=== PATIENT | female | born 1980 | race Caucasian/White ===

== ENCOUNTER 2017-05-28 02:26 | Inpatient (IN) | payer BC ==
[2017-05-28 02:27] VITALS: BMI 26.5
--- NOTE | 2017-05-28 02:38 | C.PDOC ---
History Of Present Illness Patient is a 36 y/o female who presents to the ED as a transfer from [facility] for hyperemesis. Patient is not tolerating PO and was given diclegis without resolution. Patient is and was medically cleared at [place]. Dr. Denton accepted and transferred patient. No other physical complaints at this time. Time Seen by Provider: 05/28/17 02:36 Chief Complaint (Nursing): GI Problem History Per: Patient History/Exam Limitations: no limitations Onset/Duration Of Symptoms: Hrs Current Symptoms Are (Timing): Still Present Context: Patient Recent travel outside of the [place]: No Past Medical History Reviewed: Historical Data, Nursing Documentation, Vital Signs Vital Signs: Last Vital Signs Temp 98.5 F 05/28/17 02:38 Pulse 65 05/28/17 02:38 Resp 16 05/28/17 02:38 BP 110/69 05/28/17 02:38 Pulse Ox 98 05/28/17 02:38 - Medical History PMH: No Chronic Diseases Surgical History: No Surg Hx - [facility] Procedures INJECT/INFUSE NEC (01/19/15) Family History: States: No Known Family Hx - Social History Hx Alcohol Use: No Hx Substance Use: No - Immunization History Hx Tetanus Toxoid Vaccination: No Hx Influenza Vaccination: No Hx Pneumococcal Vaccination: No Review Of Systems Gastrointestinal: Positive for: Vomiting (hyperemesis) Physical Exam - Physical Exam Appears: Non-toxic Skin: Warm, Dry Head: Normacephalic Oral Mucosa: Moist Chest: Symmetrical Cardiovascular: Rhythm Regular, No Murmur Respiratory: Normal Breath Sounds, No Rales, No Rhonchi, No Wheezing Gastrointestinal/Abdominal: Soft, No Tenderness Disposition Discussed With : Ceci Denton Comment: accepted the pt on her service and took over the care at 2:39AM Doctor Will See Patient In The: ED Counseled Patient/Family Regarding: Studies Performed, Diagnosis - Disposition Disposition: HOSPITALIZED Disposition Time: 02:38 Condition: FAIR - POA Present On Arrival: None - Clinical Impression Clinical Impression: Intractable vomiting, - Scribe Statement The provider has reviewed the documentation as recorded by the Scribe Alanna Sims All medical record entries made by the Scribe were at my direction and personally dictated by me. I have reviewed the chart and agree that the record accurately reflects my personal performance of the history, physical exam, medical decision making, and the department course for this patient. I have also personally directed, reviewed, and agree with the discharge instructions and disposition. Decision To Admit - Pt Status Changed To: Hospital Disposition Of: Inpatient - Admit Certification Admit to Inpatient:: After my assessment, the patient will require hospitalization for at least two midnights. This is because of the severity of symptoms shown, intensity of services needed, and/or the medical risk in this patient being treated as an outpatient. - InPatient: Physician Admission Certification: I certify that this patient requires 2 or more midnights of care for the following reason:: After my assessment, the patient will require hospitalization for at least two midnights. This is because of the severity of symptoms shown, intensity of services needed, and/or the medical risk in this patient being treated as an outpatient. - . Bed Request Type: Regular Admitting Physician: Ceci A Bertin Patient Diagnosis: Intractable vomiting,
[2017-05-28] MEDS ORDERED: Dextrose 5%/0.9% NS 1,000 ML IV ONE (06:04)
[2017-05-28] MEDS: Pyridoxine HCl 100 mg/ml Inj IV SCH ×2 (07:01→11:30)
--- NOTE | 2017-05-28 07:07 | CP.PCM.HP ---
History of Present Illness - History of Present Illness History of Present Illness: Patient received from [facility] at [facility] Patient received in bed, room 560B: resting; easily awakened. 34 y.o. , LMP 03/04/17, PHUC 12/09/17, EGA 12 w 1d, confirmed by hermanno at weeks, presented to [facility] at [place] 05/27/17 with worsening vomiting from 05/26/17 through 05/27/17 and vomiting blood - intermittently 05/26/17 and "all the time I vomited" 05/27/17 with passage of a clot. HPI: nausea and vomiting since 8 weeks gestation. Has been on alternating anti- emetics: reglan and diclegis by private Ob, [facility]. Intractable vomiting unresponsive to meds 1100 hours 05/27/17: took diclegis in the am 05/27/17 - no improvement; then took reglan - very little improvement. Then decided to come in for evaluation. In E.D. at [place], received zofran - has had no vomiting since. Patient is hungry. Per patient has actually gained weight: prepregnancy weight 134 lbs; 05/27/17 Ob visit, 140 lbs. 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 No h/o Pap. (+) h/o fibroid, 1999 PMH: denies PSH: 1) D&C x 2. 2) 2000, open myomectomy. 3) 08/2015, arthroscopic surgery - torn meniscus right knee. 4) 10/2015, removal of lump dorsum left wrist Meds: reglan, diclegis - as needed. NKDA Soc Hx: denies tobacco, illicit drug or EtOH use. x 3 years; together 5 years. Unemployed Fam Hx: Mother alive 58 y.o. HTN. Father age 60 - stomach cancer. Present on Admission - Present on Admission Any Indicators Present on Admission: No Review of Systems - Review of Systems All systems: reviewed and no additional remarkable complaints except Past Patient History - Infectious Disease Hx of Infectious Diseases: None - Past Medical History & Family History Past Medical History?: No - Past Social History Smoking Status: Never Smoked Chewing Tobacco Use: No Cigar Use: No Home Situation {Lives}: With Family - CARDIAC Hx Cardiac Disorders: No - PULMONARY Hx Respiratory Disorders: No - NEUROLOGICAL Hx Neurological Disorder: No - HEENT Hx HEENT Problems: No - RENAL Hx Chronic Kidney Disease: No - ENDOCRINE/METABOLIC Hx Endocrine Disorders: No - HEMATOLOGICAL/ONCOLOGICAL Hx Blood Disorders: No - INTEGUMENTARY Hx Dermatological Problems: No - MUSCULOSKELETAL/RHEUMATOLOGICAL Hx Musculoskeletal Disorders: No - GASTROINTESTINAL Hx Gastrointestinal Disorders: No - GENITOURINARY/GYNECOLOGICAL Hx Genitourinary Disorders: No Other/Comment: Myomectomy LMP:: 03/04/2017 : 3 Para: 0 Termination of : 2 - PSYCHIATRIC Hx Psychophysiologic Disorder: No Hx Substance Use: No - SURGICAL HISTORY Hx Surgeries: Yes Hx Orthopedic Surgery: Yes Other/Comment: rt. knee torn meniscus, myomectomy and left hand sx. - ANESTHESIA Hx Anesthesia: Yes Hx Anesthesia Reactions: No Meds Allergies/Adverse Reactions: Allergies Allergy/AdvReac Type Severity Reaction Status Date / Time No Known Allergies Allergy Verified 05/28/17 02:49 Physical Exam - Constitutional Appears: Well, No Acute Distress - Head Exam Head Exam: NORMAL INSPECTION, NORMOCEPHALIC - Eye Exam Eye Exam: Normal appearance - ENT Exam ENT Exam: Mucous Membranes Moist - Neck Exam Neck exam: Positive for: Full Rom - Respiratory Exam Respiratory Exam: NORMAL BREATHING PATTERN - Cardiovascular Exam Cardiovascular Exam: REGULAR RHYTHM - GI/Abdominal Exam GI & Abdominal Exam: Normal Bowel Sounds, Soft - Exam Bimanual exam: NORMAL BIMANUAL EXAM - Extremities Exam Extremities exam: Positive for: full ROM, normal inspection - Back Exam Back exam: NORMAL INSPECTION - Neurological Exam Neurological exam: Alert, Oriented x3 - Psychiatric Exam Psychiatric exam: Normal Affect, Normal Mood - Skin Skin Exam: Dry, Intact, Normal Color, Warm Results - Vital Signs Recent Vital Signs: Last Vital Signs Temp 98.3 F 05/28/17 03:30 Pulse 67 05/28/17 03:30 Resp 16 05/28/17 03:30 BP 109/68 05/28/17 03:30 Pulse Ox 99 05/28/17 03:30 Assessment & Plan - Assessment and Plan (Free Text) Assessment: Labs and ultrasound report reviewed by me noted for ketones in urine >80; Ob sono 05/27/17 SIUP 12w 4d 36 y.o. , 12w 1d by LMP, intractable vomiting with ketonuria. Currently no vomiting x 12 hours. No electrolyte abnormality. Patient advised to maintain NPO x 12-24 hours and will continue IV hydration with medications. No more blood per vomitus. Patient expressed an understanding and agrees. Patient is clinically stable. Plan: 1) Admit 2) NPO 3) IVFs 4) Pyridoxine 50 mg daily 5) Comp panel at 1000 hours and in AM 05/29 6) CBC in AM 05/29 7) Anti-emetics 8) OOB ad lien; SCD when in bed 9) Consider GI evaluation - Date & Time Date: 05/28/17 Time: 07:20
[2017-05-28 08:11] VITALS: RESP 20
--- NOTE | 2017-05-28 09:12 | CP.PCM.PN ---
Subjective - Date & Time of Evaluation Date of Evaluation: 05/28/17 Time of Evaluation: 10:00 - Subjective Subjective: BEHAVIORAL HEALTH RN Hospitalist Note - Dr. Sommer Patient was seen and examined at bedside. Patient reports last episode of emesis was last night 11pm. She reports she had nausea and vomiting for the past 2 weeks - with faint spots of blood. However, the most recent episodes on 05/26 and 05/27- with passages of a large volume of blood and a clot. Admits to some nausea, no vomiting since 11pm last night. Denied fever, chills, dizziness , headache, chest pain, abdominal pain, v/d/c, or urinary symptoms. Objective - Vital Signs/Intake and Output Vital Signs (last 24 hours): Temp Pulse Resp BP Pulse Ox 98.1 F 69 20 98/60 L 97 05/28/17 07:10 05/28/17 07:10 05/28/17 07:10 05/28/17 07:10 05/28/17 07:10 - Medications Medications: Current Medications Dextrose/Sodium Chloride (Dextrose 5%/0.9% Ns 1000 Ml) 1,000 mls @ 150 mls/hr IV .Q6H40M ONE Stop: 05/28/17 12:43 Last Admin: 05/28/17 06:49 Dose: 150 mls/hr Ondansetron HCl (Zofran Inj) 4 mg IVP Q6H [facility] Last Admin: 05/28/17 07:03 Dose: Not Given Pyridoxine HCl (Pyridoxine Hcl) 50 mg IV Q24H [facility] - Constitutional Appears: No Acute Distress - Head Exam Head Exam: NORMAL INSPECTION - Eye Exam Eye Exam: EOMI, Normal appearance, PERRL Pupil Exam: NORMAL ACCOMODATION - ENT Exam ENT Exam: Mucous Membranes Moist, Normal Exam - Neck Exam Neck Exam: Normal Inspection - Respiratory Exam Respiratory Exam: Clear to Ausculation Bilateral, NORMAL BREATHING PATTERN. absent: Decreased Breath Sounds, Wheezes - Cardiovascular Exam Cardiovascular Exam: REGULAR RHYTHM, RRR, +S1, +S2 - GI/Abdominal Exam GI & Abdominal Exam: Soft, Normal Bowel Sounds. absent: Distended, Tenderness, Hernia, Mass, Organomegaly - Rectal Exam Rectal Exam: Deferred - Extremities Exam Extremities Exam: Normal Inspection. absent: Pedal Edema, Tenderness - Neurological Exam Neurological Exam: Alert, Awake, Oriented x3 - Psychiatric Exam Psychiatric exam: Normal Affect, Normal Mood - Skin Skin Exam: Dry, Intact, Normal Color, Warm. absent: Pallor Assessment and Plan - Assessment and Plan (Free Text) Assessment: 36 y.o. , 12w 1d by LMP, intractable vomiting with ketonuria. Ob sono SIUP 12w 5d (today) Plan: Hyperemisis Gravidarum Admitted under BEHAVIORAL HEALTH RN Transvaginal US (05/27/17)- Gestation: Single live intrauterine gestation. heart rate of 154 beats per minute. [place]-rump length of 6.16 cm, correlating with gestational age of 12 weeks 4 days. Meds: NPO initially- currently on Clear Liquid Diet - will advance as tolerated D5 - NS @ 150cc/hr Zofran [facility] Pyridoxine 50mg PO daily Hematemesis GI Consulted - Dr. Turner - help appreciated 05/27/17 H/H when patient was seen in [facility] - ED - 12.9 / 36.8 Monitor hemoglobin Prophylactic Measures DVT PPX- SCDs in place, encourage ambulation DW Dr. Sommer, Demi GANT, PGY-1
--- NOTE | 2017-05-28 10:22 | CP.PCM.CON ---
<Renea Latif - Last Filed: 05/28/17 14:28> History of Present Illness - History of Present Illness History of Present Illness: GI Fellow PGY4 Consult Note This is a 36yF 12 weeks presenting with nausea and worsening vomiting with blood and passage of a clot. Pt has been experiencing severe nausea and vomiting starting at 8weeks of and alternating anti-emetics including reglan and diclegis. She started to have intractable vomiting unresponsive to medications yesterday. In ER she received zofran has had no vomiting since then , she only has nausea. She reports multiple episodes of vomiting yesterday followed by coffee ground emesis. Per Patient has gained weight of 6 pounds since . Pt denies prior EGD or colonoscopy, hx of mild acid reflux. Denies NSAID use, no melena, hematochezia. ROS: A 12pt ROS was negative except as above. PMH: No reported medical hx PSH: D&C, open myomectomy, arthroscopic surgery - torn meniscus right knee, removal of lump dorsum left wrist Soc Hx: denies tobacco, illicit drug or EtOH use Fam Hx: Father age 60 - stomach cancer Past Patient History - Infectious Disease Hx of Infectious Diseases: None - Past Medical History & Family History Past Medical History?: No - Past Social History Smoking Status: Never Smoked Chewing Tobacco Use: No Cigar Use: No Home Situation {Lives}: With Family - CARDIAC Hx Cardiac Disorders: No - PULMONARY Hx Respiratory Disorders: No - NEUROLOGICAL Hx Neurological Disorder: No - HEENT Hx HEENT Problems: No - RENAL Hx Chronic Kidney Disease: No - ENDOCRINE/METABOLIC Hx Endocrine Disorders: No - HEMATOLOGICAL/ONCOLOGICAL Hx Blood Disorders: No - INTEGUMENTARY Hx Dermatological Problems: No - MUSCULOSKELETAL/RHEUMATOLOGICAL Hx Musculoskeletal Disorders: No - GASTROINTESTINAL Hx Gastrointestinal Disorders: No - GENITOURINARY/GYNECOLOGICAL Hx Genitourinary Disorders: No Other/Comment: Myomectomy LMP:: 03/04/2017 : 3 Para: 0 Termination of : 2 - PSYCHIATRIC Hx Psychophysiologic Disorder: No Hx Substance Use: No - SURGICAL HISTORY Hx Surgeries: Yes Hx Orthopedic Surgery: Yes Other/Comment: rt. knee torn meniscus, myomectomy and left hand sx. - ANESTHESIA Hx Anesthesia: Yes Hx Anesthesia Reactions: No Meds Allergies/Adverse Reactions: Allergies Allergy/AdvReac Type Severity Reaction Status Date / Time No Known Allergies Allergy Verified 05/28/17 02:49 - Medications Medications: Current Medications Dextrose/Sodium Chloride (Dextrose 5%/0.9% Ns 1000 Ml) 1,000 mls @ 150 mls/hr IV .Q6H40M ONE Stop: 05/28/17 12:43 Last Admin: 05/28/17 06:49 Dose: 150 mls/hr Ondansetron HCl (Zofran Inj) 4 mg IVP Q6H [facility] Last Admin: 05/28/17 07:03 Dose: Not Given Pyridoxine HCl (Pyridoxine Hcl) 50 mg IV Q24H [facility] Physical Exam - Constitutional Appears: Non-toxic, No Acute Distress - Head Exam Head Exam: ATRAUMATIC, NORMAL INSPECTION, NORMOCEPHALIC - Eye Exam Eye Exam: EOMI, Normal appearance, PERRL Pupil Exam: NORMAL ACCOMODATION, PERRL - ENT Exam ENT Exam: Mucous Membranes Moist, Normal Exam - Neck Exam Neck exam: Positive for: Normal Inspection - Respiratory Exam Respiratory Exam: Clear to Auscultation Bilateral, NORMAL BREATHING PATTERN - Cardiovascular Exam Cardiovascular Exam: REGULAR RHYTHM - GI/Abdominal Exam GI & Abdominal Exam: Normal Bowel Sounds, Soft. absent: Distended, Guarding, Organomegaly, Tenderness - Rectal Exam Rectal Exam: Deferred - Extremities Exam Extremities exam: Positive for: normal inspection. Negative for: pedal edema - Back Exam Back exam: NORMAL INSPECTION - Neurological Exam Neurological exam: Alert, Oriented x3 - Psychiatric Exam Psychiatric exam: Normal Affect, Normal Mood - Skin Skin Exam: Dry, Intact, Normal Color, Warm Results - Vital Signs Recent Vital Signs: Last Vital Signs Temp 98.1 F 05/28/17 07:10 Pulse 69 05/28/17 07:10 Resp 20 05/28/17 07:10 BP 98/60 L 05/28/17 07:10 Pulse Ox 97 05/28/17 07:10 - Labs Result Diagrams: 05/28/17 11:51 05/28/17 11:51 Assessment & Plan - Assessment and Plan (Free Text) Assessment: This a 36yF with intractable nausea and vomiting with reported one episode of coffee ground emesis. 1. Hyperemesis Gravidium 2. Coffee ground emesis Plan: -Continue supportive care with IVF hydration, anti-emetics -Will order H.pylori stool antigen to r/o infection for possible underlying etiology -No active GI bleeding at this time, Hgb stable, hemodynamically stable ddx esophagitis, gastritis, cortez ceja tear, PUD -Continue to monitor, no emergent need for EGD -Will start pepcid daily, can start lansprazole category B as an outpt for 2 wks since not available in hospital only have pantropazole category C -Advance diet as tolerated -Will continue to follow closely <Dharmesh Naik - Last Filed: 05/28/17 14:50> Meds - Medications Medications: Current Medications Famotidine (Pepcid) 20 mg IVP DAILY [facility] Last Admin: 05/28/17 11:50 Dose: 20 mg Ondansetron HCl (Zofran Inj) 4 mg IVP Q6H [facility] Last Admin: 05/28/17 12:29 Dose: 4 mg Pyridoxine HCl (Pyridoxine Hcl) 50 mg IV Q24H [facility] Last Admin: 05/28/17 11:30 Dose: 50 mg Results - Vital Signs Recent Vital Signs: Last Vital Signs Temp 98.1 F 05/28/17 07:10 Pulse 69 05/28/17 07:10 Resp 20 05/28/17 07:10 BP 98/60 L 05/28/17 07:10 Pulse Ox 97 05/28/17 07:10 - Labs Result Diagrams: 05/28/17 11:51 05/28/17 11:51 Labs: Laboratory Results - last 24 hr 05/28/17 05/28/17 11:51 11:51 WBC 10.1 RBC 3.90 Hgb 12.1 Hct 35.0 MCV 89.7 MCH 31.1 H MCHC 34.7 RDW 13.9 Plt Count 225 MPV 7.9 Neut % (Auto) 71.8 Lymph % (Auto) 19.3 L [place] % (Auto) 7.7 Eos % (Auto) 0.7 Baso % (Auto) 0.5 Neut # 7.2 H Lymph # 1.9 [place] # 0.8 Eos # 0.1 Baso # 0.0 Sodium 129 L Potassium 3.6 Chloride 101 Carbon Dioxide 23 Anion Gap 8 L BUN 8 Creatinine 0.5 L Est GFR ( Amer) > 60 Est GFR (Non-Af Amer) > 60 Random Glucose 82 Calcium 8.0 L Phosphorus 3.4 Magnesium 1.7 Total Bilirubin 0.9 AST 27 ALT 27 Alkaline Phosphatase 59 Total Protein 6.0 L Albumin 3.5 Globulin 2.5 Albumin/Globulin Ratio 1.4 Attending/Attestation - Attestation I have personally seen and examined this patient.: Yes I have fully participated in the care of the patient.: Yes I have reviewed all pertinent clinical information: Yes Notes (Text): 05/28/17 14:41 I have seen and examined patient with GI fellow. Agree with above documentation with the following additions. In brief, this is a 36 year old female, currently (2 prior miscarriages) at 12 weeks gestational age who presents to hospital with complaint of hematemesis. She began developing intracatable nausea and vomiting at week 8 of and was diagnosed with hyperemesis gravidarium. She has been generally well maintained as outpatient on anti-emetic therapy and has gained 6 pounds during thus far. Over the past 1 week she began to develop progressively worse and recurrent multiple episodes of vomiting daily and yesterday had episode of hematemesis. She endorses mild epigastric abdominal pain, 5/10 intensity, non- radiating. She denies fever/chills, rectal bleeding, sick contacts, recent travel, recent NSAID use. No prior endoscopic evaluation. Current state - 12 week gestational age Hyperemesis gravidarium Hematemesis - H/H stable, continue to monitor - Liquid diet as tolerated - Suggest use of H2 naa therapy which is not contraindicated in . On hospital discharge would consider use of lansoprazole for two week treatment duration which has been classified as category B during . - Anti-emetic therapy PRN for symptomatic relief - Follow up OB recommendations and monitoring - Currently patient hemodynamically stable, no indication for urgent endoscopic evaluation, particularly given risks of procedure and potential harm to fetus in current state. Will continue with close observation and monitor patient clinical course.
[2017-05-28 12:03] LABS: BASO % 0.5 % (0.0-2.0); EOS # 0.1 K/uL (0.0-0.7); EOS % 0.7 % (0.0-4.0); LYMPH # 1.9 K/uL (1.0-4.3); LYMPH % 19.3 % (20.0-40.0); MEAN CELL VOLUME 89.7 fL (81.0-99.0); MEAN CORPUSCULAR HEMOGLOBIN 31.1 pg (27.0-31.0); MEAN CORPUSCULAR HGB CONC 34.7 g/dL (33.0-37.0); MEAN PLATELET VOLUME 7.9 fL (7.2-11.7); MONO # 0.8 K/uL (0.0-0.8); MONO % 7.7 % (0.0-10.0); RED CELL DISTRIBUTION WIDTH 13.9 % (11.5-14.5); WHITE BLOOD COUNT 10.1 K/uL (4.8-10.8)
[2017-05-28 12:23] LABS: ALKALINE PHOSPHATASE 59 U/L (38-126); ALT/SGPT 27 U/L (9-52); AST/SGOT 27 U/L (14-36); BILIRUBIN,TOTAL 0.9 mg/dL (0.2-1.3); BLOOD UREA NITROGEN 8 mg/dL (7-17); CARBON DIOXIDE 23 mmol/L (22-30); CHLORIDE 101 mmol/L (98-107); GFR AFRICAN-AMERICAN > 60; GLUCOSE,RANDOM 82 mg/dL (65-105); MAGNESIUM 1.7 mg/dL (1.6-2.3); PHOSPHOROUS 3.4 mg/dL (2.5-4.5); POTASSIUM 3.6 mmol/L (3.6-5.2); SODIUM 129 mmol/L (132-148)
[2017-05-28 12:37] LABS: ALB/GLOB RATIO 1.4 (1.0-2.1)
[2017-05-29] MEDS: Pyridoxine HCl 100 mg/ml Inj IV SCH (06:20)
[2017-05-29 07:46] VITALS: O2SAT 97
[2017-05-29 08:38] LABS: BASO % 0.2 % (0.0-2.0); EOS # 0.1 K/uL (0.0-0.7); EOS % 1.4 % (0.0-4.0); HEMATOCRIT 36.2 % (34.0-47.0); LYMPH # 2.3 K/uL (1.0-4.3); LYMPH % 21.9 % (20.0-40.0); MEAN CELL VOLUME 88.8 fL (81.0-99.0); MEAN CORPUSCULAR HEMOGLOBIN 31.3 pg (27.0-31.0); MEAN CORPUSCULAR HGB CONC 35.2 g/dL (33.0-37.0); MONO # 0.9 K/uL (0.0-0.8); MONO % 8.3 % (0.0-10.0); NRBC % 0.1 % (0.0-2.0); RED CELL DISTRIBUTION WIDTH 13.9 % (11.5-14.5); WHITE BLOOD COUNT 10.5 K/uL (4.8-10.8)
[2017-05-29 09:07] LABS: ALB/GLOB RATIO 1.4 (1.0-2.1); ALKALINE PHOSPHATASE 60 U/L (38-126); ALT/SGPT 20 U/L (9-52); AST/SGOT 21 U/L (14-36); BILIRUBIN,TOTAL 1.3 mg/dL (0.2-1.3); BLOOD UREA NITROGEN 6 mg/dL (7-17); CALCIUM 8.4 mg/dl (8.6-10.4); CARBON DIOXIDE 23 mmol/L (22-30); CHLORIDE 98 mmol/L (98-107); GFR AFRICAN-AMERICAN > 60; GLUCOSE,RANDOM 78 mg/dL (65-105); MAGNESIUM 1.7 mg/dL (1.6-2.3); PHOSPHOROUS 3.5 mg/dL (2.5-4.5); POTASSIUM 3.6 mmol/L (3.6-5.2); SODIUM 128 mmol/L (132-148); TOTAL PROTEIN 6.1 g/dL (6.3-8.3)
--- NOTE | 2017-05-29 09:31 | CP.PCM.DIS ---
<Haydee Simms - Last Filed: 05/29/17 13:39> Provider - Provider Date of Admission: 05/28/17 02:38 Attending physician: Ceci Denton MD Consults: GI: Dr. Turner Time Spent in preparation of Discharge (in minutes): 55 Hospital Course - Lab Results Lab Results: Most Recent Lab Values WBC 10.5 K/uL (4.8-10.8) 05/29/17 08:12 RBC 4.08 Mil/uL (3.80-5.20) 05/29/17 08:12 Hgb 12.8 g/dL (11.0-16.0) 05/29/17 08:12 Hct 36.2 % (34.0-47.0) 05/29/17 08:12 MCV 88.8 fL (81.0-99.0) 05/29/17 08:12 MCH 31.3 pg (27.0-31.0) H 05/29/17 08:12 MCHC 35.2 g/dL (33.0-37.0) 05/29/17 08:12 RDW 13.9 % (11.5-14.5) 05/29/17 08:12 Plt Count 250 K/uL (130-400) 05/29/17 08:12 MPV 8.0 fL (7.2-11.7) 05/29/17 08:12 Neut % (Auto) 68.2 % (50.0-75.0) 05/29/17 08:12 Lymph % (Auto) 21.9 % (20.0-40.0) 05/29/17 08:12 [place] % (Auto) 8.3 % (0.0-10.0) 05/29/17 08:12 Eos % (Auto) 1.4 % (0.0-4.0) 05/29/17 08:12 Baso % (Auto) 0.2 % (0.0-2.0) 05/29/17 08:12 Neut # 7.1 K/uL (1.8-7.0) H 05/29/17 08:12 Lymph # 2.3 K/uL (1.0-4.3) 05/29/17 08:12 [place] # 0.9 K/uL (0.0-0.8) H 05/29/17 08:12 Eos # 0.1 K/uL (0.0-0.7) 05/29/17 08:12 Baso # 0.0 K/uL (0.0-0.2) 05/29/17 08:12 Sodium 128 mmol/L (132-148) L 05/29/17 08:12 Potassium 3.6 mmol/L (3.6-5.2) 05/29/17 08:12 Chloride 98 mmol/L (98-107) 05/29/17 08:12 Carbon Dioxide 23 mmol/L (22-30) 05/29/17 08:12 Anion Gap 11 (10-20) 05/29/17 08:12 BUN 6 mg/dL (7-17) L 05/29/17 08:12 Creatinine 0.5 mg/dL (0.7-1.2) L 05/29/17 08:12 Est GFR ( Amer) > 60 05/29/17 08:12 Est GFR (Non-Af Amer) > 60 05/29/17 08:12 Random Glucose 78 mg/dL (65-105) 05/29/17 08:12 Calcium 8.4 mg/dl (8.6-10.4) L 05/29/17 08:12 Phosphorus 3.5 mg/dL (2.5-4.5) 05/29/17 08:12 Magnesium 1.7 mg/dL (1.6-2.3) 05/29/17 08:12 Total Bilirubin 1.3 mg/dL (0.2-1.3) 05/29/17 08:12 AST 21 U/L (14-36) 05/29/17 08:12 ALT 20 U/L (9-52) 05/29/17 08:12 Alkaline Phosphatase 60 U/L (38-126) 05/29/17 08:12 Total Protein 6.1 g/dL (6.3-8.3) L 05/29/17 08:12 Albumin 3.6 g/dL (3.5-5.0) 05/29/17 08:12 Globulin 2.6 gm/dL (2.2-3.9) 05/29/17 08:12 Albumin/Globulin Ratio 1.4 (1.0-2.1) 05/29/17 08:12 - Hospital Course Hospital Course: Upon Admission: Patient received from [facility] Patient received in bed, room 560B: resting; easily awakened. 34 y.o. , LMP 03/04/17, PHUC 12/09/17, EGA 12 w 1d, confirmed by sono at weeks, presented to [facility] at [facility] 05/27/17 with worsening vomiting from 05/26/17 through 05/27/17 and vomiting blood - intermittently 05/26/17 and "all the time I vomited" 05/27/17 with passage of a clot. HPI: nausea and vomiting since 8 weeks gestation. Has been on alternating anti- emetics: reglan and diclegis by private Ob, [facility] group affiliated with [facility]. Intractable vomiting unresponsive to meds 1100 hours 05/27/17: took diclegis in the am 05/27/17 - no improvement; then took reglan - very little improvement. Then decided to come in for evaluation. In E.D. at [facility], received zofran - has had no vomiting since. Patient is hungry. Per patient has actually gained weight: prepregnancy weight 134 lbs; 05/27/17 Ob visit, 140 lbs. 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 No h/o Pap. (+) h/o fibroid, 1999 PMH: denies PSH: 1) D&C x 2. 2) 2000, open myomectomy. 3) 08/2015, arthroscopic surgery - torn meniscus right knee. 4) 10/2015, removal of lump dorsum left wrist Meds: reglan, diclegis - as needed. NKDA Soc Hx: denies tobacco, illicit drug or EtOH use. x 3 years; together 5 years. Unemployed Fam Hx: Mother alive 58 y.o. HTN. Father age 60 - stomach cancer. Throughout Hospital Course: Patient was admitted for Hyperemisis Gravidarum and hematemesis. GI was consulted. Patient was kept NPO and started on fluids, started on pyridoxine and Zofran scheduled doses. Her diet was slowly advanced as tolerated. GI reccs were to start an H2 naa (catergory B) x 2 weeks and use Anti-emetic therapy PRN. H. Pylori studies were ordered. Currently patient hemodynamically stable, no indication for urgent endoscopic evaluation, particularly given risks of procedure and potential harm to fetus in current state. Patient instructed to follow up with your TELECOMMUNICATIONS CONSULTANT appointment arranged on - please attend. This is a brief summary of the patient's hospital course. Please review EMR for full record. Discharge Exam - Head Exam Head Exam: ATRAUMATIC, NORMAL INSPECTION, NORMOCEPHALIC - Additional Findings Additional findings: - Constitutional Appears: No Acute Distress - Head Exam Head Exam: NORMAL INSPECTION - Eye Exam Eye Exam: EOMI, Normal appearance, PERRL Pupil Exam: NORMAL ACCOMODATION - ENT Exam ENT Exam: Mucous Membranes Moist, Normal Exam - Neck Exam Neck Exam: Normal Inspection - Respiratory Exam Respiratory Exam: Clear to Ausculation Bilateral, NORMAL BREATHING PATTERN. absent: Decreased Breath Sounds, Wheezes - Cardiovascular Exam Cardiovascular Exam: REGULAR RHYTHM, RRR, +S1, +S2 - GI/Abdominal Exam GI & Abdominal Exam: Soft, Normal Bowel Sounds. absent: Distended, Tenderness, Hernia, Mass, Organomegaly - Rectal Exam Rectal Exam: Deferred - Extremities Exam Extremities Exam: Normal Inspection. absent: Pedal Edema, Tenderness - Neurological Exam Neurological Exam: Alert, Awake, Oriented x3 - Psychiatric Exam Psychiatric exam: Normal Affect, Normal Mood - Skin Skin Exam: Dry, Intact, Normal Color, Warm. absent: Pallor Discharge Plan - Discharge Medications Prescriptions: Ondansetron HCl [Zofran] 8 mg PO Q8H #21 tab - Follow Up Plan Condition: FAIR Instructions: Lansoprazole (By mouth), Ondansetron (By mouth), Hyperemesis Gravidarum (DC) Additional Instructions: Please continue taking Lansoprazole 15mg by mouth once a day for 14 days. Please take Zofran 8mg by mouth every 6-8 hours as needed for nausea and vomiting. Please follow up with your TELECOMMUNICATIONS CONSULTANT appointment arranged on 06/04/17 - please attend. If your symptoms return or worsen please return to the Emergency Room. -- Contine tomando Lansoprazol 15 mg por va oral argenis vez al da [place]all 14 [address]. Por favor, tome Zofran 8 mg por va oral cada 6-8 horas, segn sea necesario para las nuseas y los vmitos. Elo el seguimiento con ryan amilcar OB / MOTORCYCLE DELIVERER programada el 04/06/17 - por favor asista. Si janet sntomas vuelven o empeoran, regrese a la acosta de emergencias. Referrals: Shaun Cruz MD [Medical Doctor] - 06/04/17 Ceci Denton MD [Staff Provider] - <Ceci Denton - Last Filed: 05/29/17 21:52> Provider - Provider Date of Admission: 05/28/17 02:38 Attending physician: Ceci Denton MD Hospital Course - Lab Results Lab Results: Most Recent Lab Values WBC 10.5 K/uL (4.8-10.8) 05/29/17 08:12 RBC 4.08 Mil/uL (3.80-5.20) 05/29/17 08:12 Hgb 12.8 g/dL (11.0-16.0) 05/29/17 08:12 Hct 36.2 % (34.0-47.0) 05/29/17 08:12 MCV 88.8 fL (81.0-99.0) 05/29/17 08:12 MCH 31.3 pg (27.0-31.0) H 05/29/17 08:12 MCHC 35.2 g/dL (33.0-37.0) 05/29/17 08:12 RDW 13.9 % (11.5-14.5) 05/29/17 08:12 Plt Count 250 K/uL (130-400) 05/29/17 08:12 MPV 8.0 fL (7.2-11.7) 05/29/17 08:12 Neut % (Auto) 68.2 % (50.0-75.0) 05/29/17 08:12 Lymph % (Auto) 21.9 % (20.0-40.0) 05/29/17 08:12 [place] % (Auto) 8.3 % (0.0-10.0) 05/29/17 08:12 Eos % (Auto) 1.4 % (0.0-4.0) 05/29/17 08:12 Baso % (Auto) 0.2 % (0.0-2.0) 05/29/17 08:12 Neut # 7.1 K/uL (1.8-7.0) H 05/29/17 08:12 Lymph # 2.3 K/uL (1.0-4.3) 05/29/17 08:12 [place] # 0.9 K/uL (0.0-0.8) H 05/29/17 08:12 Eos # 0.1 K/uL (0.0-0.7) 05/29/17 08:12 Baso # 0.0 K/uL (0.0-0.2) 05/29/17 08:12 Sodium 128 mmol/L (132-148) L 05/29/17 08:12 Potassium 3.6 mmol/L (3.6-5.2) 05/29/17 08:12 Chloride 98 mmol/L (98-107) 05/29/17 08:12 Carbon Dioxide 23 mmol/L (22-30) 05/29/17 08:12 Anion Gap 11 (10-20) 05/29/17 08:12 BUN 6 mg/dL (7-17) L 05/29/17 08:12 Creatinine 0.5 mg/dL (0.7-1.2) L 05/29/17 08:12 Est GFR ( Amer) > 60 05/29/17 08:12 Est GFR (Non-Af Amer) > 60 05/29/17 08:12 Random Glucose 78 mg/dL (65-105) 05/29/17 08:12 Calcium 8.4 mg/dl (8.6-10.4) L 05/29/17 08:12 Phosphorus 3.5 mg/dL (2.5-4.5) 05/29/17 08:12 Magnesium 1.7 mg/dL (1.6-2.3) 05/29/17 08:12 Total Bilirubin 1.3 mg/dL (0.2-1.3) 05/29/17 08:12 AST 21 U/L (14-36) 05/29/17 08:12 ALT 20 U/L (9-52) 05/29/17 08:12 Alkaline Phosphatase 60 U/L (38-126) 05/29/17 08:12 Total Protein 6.1 g/dL (6.3-8.3) L 05/29/17 08:12 Albumin 3.6 g/dL (3.5-5.0) 05/29/17 08:12 Globulin 2.6 gm/dL (2.2-3.9) 05/29/17 08:12 Albumin/Globulin Ratio 1.4 (1.0-2.1) 05/29/17 08:12 Attending/Attestation - Attestation I have personally seen and examined this patient.: Yes I have fully participated in the care of the patient.: Yes I have reviewed all pertinent clinical information, including history, physical exam and plan: Yes Notes (Text): 05/29/17 21:50 Patient seen by me with the resident earlier this morning. I agree with the above documentation of events. Patient encouraged to eat small,frequent meals; to avoid greasy, fatty, spicy foods. Patient encouraged to follow up private OB provider, Anthony huynh, Saturday06/04/17.
--- NOTE | 2017-05-29 13:07 | CP.PCM.PN ---
<Renea Latif - Last Filed: 05/29/17 13:03> Subjective - Date & Time of Evaluation Date of Evaluation: 05/29/17 Time of Evaluation: 10:30 - Subjective Subjective: GI Fellow PGY4 Progress Note Pt seen and evaluated at bedside, no acute events overnight. Pt reports some nausea last night but no further vomiting, denies hematemesis. Pt was able to tolerate full liquid diet. ROS: A 12pt ROS was negative except as above. Objective - Vital Signs/Intake and Output Vital Signs (last 24 hours): Temp Pulse Resp BP Pulse Ox 97.9 F 70 20 111/64 97 05/29/17 07:45 05/29/17 07:45 05/29/17 07:45 05/29/17 07:45 05/29/17 07:45 Intake and Output: 05/29/17 05/29/17 06:59 18:59 Intake Total 240 Balance 240 - Medications Medications: Current Medications Famotidine (Pepcid) 20 mg IVP DAILY [facility] Last Admin: 05/29/17 10:13 Dose: 20 mg Ondansetron HCl (Zofran Tab) 8 mg PO Q8H [facility] Last Admin: 05/29/17 12:34 Dose: 8 mg Pyridoxine HCl (Pyridoxine Hcl) 50 mg IV Q24H [facility] Last Admin: 05/29/17 06:20 Dose: 50 mg - Labs Labs: 05/29/17 08:12 05/29/17 08:12 - Constitutional Appears: Non-toxic, No Acute Distress - Head Exam Head Exam: ATRAUMATIC, NORMAL INSPECTION, NORMOCEPHALIC - Eye Exam Eye Exam: EOMI, Normal appearance, PERRL Pupil Exam: NORMAL ACCOMODATION, PERRL - ENT Exam ENT Exam: Mucous Membranes Moist, Normal Exam - Neck Exam Neck Exam: Full ROM, Normal Inspection - Respiratory Exam Respiratory Exam: Clear to Ausculation Bilateral, NORMAL BREATHING PATTERN - Cardiovascular Exam Cardiovascular Exam: REGULAR RHYTHM - GI/Abdominal Exam GI & Abdominal Exam: Soft, Normal Bowel Sounds. absent: Tenderness - Rectal Exam Rectal Exam: Deferred - Extremities Exam Extremities Exam: Full ROM, Normal Inspection - Back Exam Back Exam: NORMAL INSPECTION - Neurological Exam Neurological Exam: Alert, Awake, Oriented x3 - Psychiatric Exam Psychiatric exam: Normal Affect, Normal Mood - Skin Skin Exam: Dry, Intact, Normal Color, Warm Assessment and Plan - Assessment and Plan (Free Text) Assessment: This a 36yF with intractable nausea and vomiting with reported one episode of coffee ground emesis. 1. Hyperemesis Gravidium 2. Coffee ground emesis Plan: -Continue supportive care with IVF hydration, anti-emetics - H.pylori stool antigen pending to r/o infection for possible underlying etiology -No active GI bleeding at this time, Hgb stable, hemodynamically stable ddx esophagitis, gastritis, cortez ceja tear, PUD -Continue to monitor, no emergent need for EGD -Continue pepcid daily, can start lansprazole category B as an outpt for 2 wks since not available in hospital only have pantropazole category C -Advance diet as tolerated -Per GI perspective, pt okay for discharge home <Michael Wilson - Last Filed: 05/29/17 13:35> Objective - Vital Signs/Intake and Output Vital Signs (last 24 hours): Temp Pulse Resp BP Pulse Ox 97.9 F 70 20 111/64 97 05/29/17 07:45 05/29/17 07:45 05/29/17 07:45 05/29/17 07:45 05/29/17 07:45 Intake and Output: 05/29/17 05/29/17 06:59 18:59 Intake Total 240 Balance 240 - Medications Medications: Current Medications Famotidine (Pepcid) 20 mg IVP DAILY [facility] Last Admin: 05/29/17 10:13 Dose: 20 mg Ondansetron HCl (Zofran Tab) 8 mg PO Q8H [facility] Last Admin: 05/29/17 12:34 Dose: 8 mg Pyridoxine HCl (Pyridoxine Hcl) 50 mg IV Q24H [facility] Last Admin: 05/29/17 06:20 Dose: 50 mg - Labs Labs: 05/29/17 08:12 05/29/17 08:12 Attending/Attestation - Attestation I have personally seen and examined this patient.: Yes I have fully participated in the care of the patient.: Yes I have reviewed all pertinent clinical information, including history, physical exam and plan: Yes Notes (Text): 05/29/17 13:33 36 year old female who is who presents with hyperemesis gravidarum with coffeee grounds, now improved. Her vomiting resolved. She has no further signs of bleeding. Would recommend supportive care with anti-emetics and PPI for a short course. Advised diet and lifestyle modification. Ok for discharge from GI standpoint.
[2017-05-29 16:42] VITALS: BP 100/57; PULSE 79; TEMP 98.5
== END 2017-05-29 22:05 | disposition home or self-care (01) | DRG 781 ==
LOC: C.ER 02:26 → C.5S 02:38 → UNDODISIN 05-29 20:19
PROVIDERS: ADMIT Obstetrics & Gynecology; ATTEND Obstetrics & Gynecology
DX: O21.0 Mild hyperemesis gravidarum (principal); K92.0 Hematemesis; O09.521 Supervision of elderly multigravida, first trimester; Z3A.12 12 weeks gestation of pregnancy